=== PATIENT | female | born 1965 | race Caucasian/White ===

== ENCOUNTER 2016-11-26 07:54 | Day surgery (SDC) | payer BC, OTHER ==
[2016-11-23 11:51] VITALS: BMI 23.4
[2016-11-26] MEDS ORDERED: LIDOCAINE HCL/PF 2% SDV 5ML VIAL ONE (08:10)
[2016-11-26] MEDS ORDERED: PROPOFOL 20 ML ONE ×2 (08:10)
[2016-11-26 10:24] VITALS: TEMP 98.1
[2016-11-26 10:42] VITALS: BP 112/65; PULSE 78
== END 2016-11-26 10:45 | disposition home or self-care (01) ==
LOC: FASU-ENDO 07:54
PROVIDERS: ATTEND Internal Medicine Gastroenterology
PROC: 0DJD8ZZ Inspection of Lower Intestinal Tract, Via Natural or Artificial Opening Endoscopic (ICD-10-PCS; principal; 2016-11-26 09:38)
DX: Z12.11 Encounter for screening for malignant neoplasm of colon (principal)